=== PATIENT | male | born 1985 | race Asian ===

== ENCOUNTER 2021-07-04 20:16 | Emergency (ER) | payer BC ==
[~2021-07-04] VITALS: Ht 182.9 cm; Wt 118.8 kg
[2021-07-04 21:03] VITALS: BP 126/81; TEMP 98.2
== END 2021-07-04 21:03 | disposition home or self-care (01) ==
LOC: ED 20:16
DX: M26.621 Arthralgia of right temporomandibular joint (principal)
CPT/HCPCS: 96372; 99283; J1885; J2930

== ENCOUNTER 2021-08-15 19:39 | Emergency (ER) | payer OTHER, BC ==
[~2021-08-15] VITALS: Ht 182.9 cm; Wt 118.8 kg
[2021-08-16 06:00] VITALS: TEMP 98.1
[2021-08-16 08:55] VITALS: BP 166/82
== END 2021-08-16 09:10 | disposition short-term general hospital (02) ==
LOC: ED 19:39
PROC: 0QSFXZZ Reposition Left Patella, External Approach (ICD-10-PCS; principal; 2021-08-15)
DX: S83.015A Lateral dislocation of left patella, initial encounter (principal); X50.9XXA Other and unspecified overexertion or strenuous movements or postures, initial encounter; Y92.89 Other specified places as the place of occurrence of the external cause
CPT/HCPCS: 96374; 96375; 99285; J1885; J2250; J3010; J3360; J3490